=== PATIENT | male | born 1945 | race Caucasian/White ===

== ENCOUNTER 2019-09-24 16:58 | Outpatient (CLI) | payer MEDICARE, SELFPAY ==
--- NOTE | ~2019-09-24 | XR_ITS ---
XR lumbar spine 2-3V 09/24/2019 17:51 Indication: Low back pain after fall Procedure: 3 views lumbar spine Comparison: No prior studies for comparison. Findings: There is normal lumbar lordosis. There is disc narrowing at L2-3 through L5-S1. There is fa cet hypertrophy at L3-4, L4-5 and L5-S1. No acute fracture or traumatic malalignment. Pedicles intact . There is atherosclerosis of the aorta. Impression: 1: Moderate-severe lumbar spondylosis. Reviewed, dictated and finalized at location A. ND WATER TECHNICIAN Impression: 1: Moderate-severe lumbar spondylosis.
--- NOTE | ~2019-09-24 | XR_ITS ---
XR wrist LT min 3V, XR hand LT min 3V 09/24/2019 17:50 Indication: Left hand and wrist pain after fall Procedure: 4 views left wrist and 3 views left hand Comparison: No prior studies for comparison. Findings: There is an ossific density dorsal to the carpal bones on the lateral view, likely a trique tral fracture. Mild polyarticular osteoarthritis. No significant soft tissue abnormality. No radiopaq ue foreign bodies. Impression: 1: Probable triquetral fracture. Correlate for point tenderness. 2: Mild polyarticular osteoarthritis. Reviewed, dictated and finalized at location A. MATE HOOPS TRAINER Impression: 1: Probable triquetral fracture. Correlate for point tenderness. 2: Mild polyarticular osteoarthritis. Impression: 1: Probable triquetral fracture. Correlate for point tenderness. 2: Mild polyarticular osteoarthritis.
--- NOTE | ~2019-09-24 | XR_ITS ---
XR pelvis 1-2V 09/24/2019 17:50 Indication: Left pelvic pain after fall Procedure: AP pelvis Comparison: No prior studies for comparison. Findings: Pelvic rings are intact. Mild degenerative changes of the hips. No acute fracture or trauma tic malalignment. Sacral foramen are symmetric. There is mild osteitis pubis. Impression: 1: No acute bone or joint abnormality. Reviewed, dictated and finalized at location A. EL PHYSICAL THERAPIST Impression: 1: No acute bone or joint abnormality.
== END 2019-09-24 16:59 | disposition home or self-care (01) ==
LOC: CHSIMG 17:06
PROVIDERS: PCP Internal Medicine; Visit Provider Internal Medicine
DX: S39.92XA Unspecified injury of lower back, initial encounter (principal); S29.9XXA Unspecified injury of thorax, initial encounter; S69.92XA Unspecified injury of left wrist, hand and finger(s), initial encounter
CPT/HCPCS: 72100; 72170; 73110; 73130

== ENCOUNTER 2019-10-01 11:58 | Outpatient (CLI) | payer MEDICARE, SELFPAY ==
--- NOTE | ~2019-10-01 | XR_ITS ---
EXAMINATION: XR shoulder RT min 2V DATE: 10/01/2019 12:23 INDICATION: Chronic right shoulder pain. TECHNIQUE: 5 views of right shoulder were obtained. COMPARISON: None. FINDINGS: Bone alignment is normal. No fracture. There is mild osteoarthritis of glenohumeral joint a nd severe osteoarthritis of acromioclavicular joint. IMPRESSION: 1. Polyarticular osteoarthritis. Reviewed, dictated and finalized at location A. ICE OFFICER
[2019-10-01 12:14] LABS: Immature Reticulocyte Fraction 6.1 % (2.0-16.52); Reticulocyte Hemoglobin Conten 34.7 pg (28.0-35.0); Reticulocyte Percent 1.14 % (0.50-1.50); Reticulocytes Absolute 0.05 M/mm3 (0.02-0.1)
[2019-10-05 22:20] LABS: Albumin 4.2 g/dL (3.8-4.8); Alpha 1 Globulin 0.3 g/dL (0.2-0.3); Alpha 2 Globulin 0.7 g/dL (0.5-0.9); Beta 1 Globulin 0.5 g/dL (0.4-0.6); Protein, Total 6.9 g/dL (6.1-8.1)
== END 2019-10-01 11:59 | disposition home or self-care (01) ==
LOC: CHSLAB 12:00
PROVIDERS: PCP Internal Medicine; Visit Provider Internal Medicine
DX: M25.511 Pain in right shoulder (principal); N18.3 Chronic kidney disease, stage 3 (moderate); D64.9 Anemia, unspecified
CPT/HCPCS: 36415; 73030; 84155; 84165; 85046; 86334

== ENCOUNTER 2019-10-07 16:52 | Outpatient (CLI) | payer MEDICARE, SELFPAY ==
--- NOTE | ~2019-10-07 | MR_ITS ---
EXAMINATION: MR shoulder RT wo con DATE: 10/07/2019 18:17 INDICATION: Right shoulder pain and catching TECHNIQUE: Magnetic resonance imaging (MRI) of the right shoulder was performed without intravenous c ontrast. Sequences included axial PD-weighted FS FSE, coronal oblique PD-weighted FS FSE, coronal obl ique T2-weighted FS FSE, sagittal PD-weighted FS FSE, and sagittal T1-weighted SE. COMPARISON: None. FINDINGS: Coracoacromial arch: The acromion undersurface is curved in morphology (type II). Moderate-sized subacromial spur along wi th small heterotopic ossicle along the coracoacromial ligament which is thickened near its acromial i nsertion. Moderate acromioclavicular osteoarthritis with moderate-sized inferiorly directed osteophyt e which exerts mass effect upon the underlying myotendinous junction of the supraspinatus. There is a lso mild cystic change at the posterior margin of the head of the clavicle. Rotator cuff: Moderate to severe tendinopathy without discrete tear along the distal supraspinatus and infraspinatu s tendons. The teres minor tendon is normal. Mild supraspinatus tendinopathy. There is a small articu lar sided tear involving the superomedial aspect of the lesser tuberosity footplate measuring approxi mately 5 mm medial to caudal and extending approximately 2.5 cm lateral to medial. There is mild atro phy of the supraspinatus muscle belly with subtle concavity to the cephalad margin of the muscle at t he suprascapular fossa but without evident fatty infiltration. There is mild fatty atrophy of the inf raspinatus muscle belly. Biceps tendon, glenoid labrum and glenohumeral cartilage: Mild tendinopathy and longitudinal split tearing of the and biceps tendon centered at the junction of the intra and extra articular portions of the tendon. Irregular margins and mild amorphous increased signal at the posterior superior glenoid labrum consistent with likely degenerative tearing extendin g from the 12:30-10:00 position. There is a prominent marginal osteophyte which appears to extend les ng the peripheral rim of the 8:00-10:00 position of the posterior glenoid labrum. There is additional degenerative tearing along the 6:00-8:00 position of the posterior inferior glenoid labrum. Glenoid labrum is normal. Mild partial-thickness cartilage loss with smooth chondral surface along the infero medial and superolateral aspects of the humeral head. Moderate-sized flap marginal osteophytes along the anterior margin of the humeral head. These extend medially from the site of the subscapularis ten don tear and resultant narrowing of the subcoracoid space with the distance between the posterior mar gin of the coracoid process and the anterior margin of the osteophytes measuring 4 mm. Fluid: Physiologic amount of fluid in the glenohumeral joint space. No loose osteochondral bodies. Small mateo unt of heterogeneous near fluid signal along the long head biceps tendon sheath consistent with mild bicipital tenosynovitis. Small amount of fluid in the subacromial/subdeltoid bursa consistent with mi ld bursitis. There is also a small acromioclavicular joint effusion. Bones: Normal marrow signal with no fracture or pathologic marrow replacing process. Mild hypertrophic and c ystic changes at the superior and middle facets of the greater tuberosity likely related to chronic r otator cuff disease. IMPRESSION: 1. Moderate to severe supraspinatus and infraspinatus tendinopathy without discrete tear with moderat e sized subacromial spur and thickening and small heterotopic ossicle at the coracoacromial ligament. 2. Mild subscapularis tendinopathy with small partial-thickness articular sided tear at the superomed ial lesser tuberosity footplate which may relate to subcoracoid impingement with 4 mm separation betw een the coracoid process and moderate sized marginal osteophyte at the anterior humeral head. 3.
== END 2019-10-07 16:53 | disposition home or self-care (01) ==
LOC: CHSIMG 16:53
PROVIDERS: PCP Internal Medicine; Visit Provider Internal Medicine
DX: M25.511 Pain in right shoulder (principal)
CPT/HCPCS: 73221

== ENCOUNTER 2020-01-28 15:36 | Outpatient (CLI) | payer MEDICARE, SELFPAY ==
--- NOTE | ~2020-01-28 | US_ITS ---
EXAMINATION: US retroperitoneal comp DATE: 01/28/2020 16:09 INDICATION: Chronic kidney disease stage III TECHNIQUE: Multiple grayscale and Doppler ultrasound images of the kidneys were obtained. COMPARISON: None. FINDINGS: The right kidney measures 9.5 x 3.9 x 5.3 cm. The left kidney measures 10.1 x 5.1 x 4.7 cm. There is a 12 mm cyst of the left mid kidney.. The kidneys demonstrate normal parenchymal echogenici ty. There is no hydronephrosis. The bladder is normal. IMPRESSION: 1. Normal kidneys without hydronephrosis. Reviewed, dictated and finalized at location A.
== END 2020-01-28 15:37 | disposition home or self-care (01) ==
LOC: CHSIMG 15:38
PROVIDERS: PCP Internal Medicine; Visit Provider Internal Medicine
DX: N18.3 Chronic kidney disease, stage 3 (moderate) (principal)
CPT/HCPCS: 76770

== ENCOUNTER 2020-06-06 09:39 | Outpatient (CLI) | payer MEDICARE, SELFPAY ==
[2020-06-07 20:51] LABS: SARS-CoV-2 RNA PCR Negative
== END 2020-06-06 09:40 | disposition home or self-care (01) ==
LOC: CHSLAB 09:43
PROVIDERS: PCP Internal Medicine; Visit Provider Internal Medicine
DX: R05 Cough (principal); Z20.828 Contact with and (suspected) exposure to other viral communicable diseases
CPT/HCPCS: 87635; C9803; U0003

== ENCOUNTER 2020-08-12 13:57 | Outpatient (CLI) | payer MEDICARE, SELFPAY ==
--- NOTE | ~2020-08-12 | XR_ITS ---
XR chest 2V 08/12/2020 14:16 Indication: Left-sided chest pain and cough Procedure: 2 view chest Comparison: No prior studies for comparison. Findings: There is lingular consolidation. Right lung clear. No pleural effusion or pneumothorax. No acute osseous abnormality. Impression: 1: Lingular airspace consolidation which may represent atelectasis and/or pneumonia. Reviewed, dictated and finalized at location A. ITIONER TENDER Impression: 1: Lingular airspace consolidation which may represent atelectasis and/or pneum onia.
== END 2020-08-12 13:58 | disposition home or self-care (01) ==
LOC: CHSIMG 13:59
PROVIDERS: PCP Internal Medicine; Visit Provider Internal Medicine
DX: R07.9 Chest pain, unspecified (principal); R05 Cough
CPT/HCPCS: 71046

== ENCOUNTER 2020-08-25 14:40 | Outpatient (CLI) | payer MEDICARE, SELFPAY ==
--- NOTE | ~2020-08-25 | XR_ITS ---
EXAMINATION: XR chest 2V DATE: 08/25/2020 15:08 INDICATION: Left chest pain. Cough. TECHNIQUE: Frontal and lateral views of the chest were obtained. COMPARISON: Chest 2 views 08/12/2020 FINDINGS: There are mild airspace opacities in lingula. No pleural effusion or pneumothorax. The hear t size is normal. IMPRESSION: 1. Stable mild airspace opacities in lingula, consistent with atelectasis versus pneumonia. Reviewed, dictated and finalized at location B. RING MACHINE OPERATOR IMPRESSION: 1. Stable mild airspace opacities in lingula, consistent with atelectasis versu s pneumonia.
== END 2020-08-25 14:41 | disposition home or self-care (01) ==
LOC: CHSIMG 14:42
PROVIDERS: PCP Internal Medicine; Visit Provider Internal Medicine
DX: M35.3 Polymyalgia rheumatica (principal); J18.9 Pneumonia, unspecified organism
CPT/HCPCS: 71046

== ENCOUNTER 2020-12-12 09:49 | Outpatient (CLI) | payer MEDICARE, SELFPAY ==
[2020-12-12 12:04] LABS: SARS-CoV-2 RNA PCR Negative (Negative)
== END 2020-12-12 09:50 | disposition home or self-care (01) ==
LOC: CHSLAB 09:51
PROVIDERS: PCP Internal Medicine; Visit Provider Internal Medicine
DX: Z20.822 Contact with and (suspected) exposure to COVID-19 (principal)
CPT/HCPCS: C9803; U0003; U0005

== ENCOUNTER 2021-09-04 09:49 | Outpatient (CLI) | payer MEDICARE, SELFPAY ==
--- NOTE | ~2021-09-04 | CT_ITS ---
EXAMINATION: CT shoulder RT wo con DATE: 09/04/2021 10:13 INDICATION: Right shoulder pain TECHNIQUE: High resolution computed tomography (CT) of the right shoulder was performed without intra venous contrast. Additional sagittal and coronal reconstructions were performed. Automated exposure c ontrol and iterative reconstruction technique were employed. The dose-length product was 278.50 mGy-c m. COMPARISON: Right shoulder MRI dated 10/07/2019 and radiograph dated 10/01/2019 FINDINGS: Alignment is normal. No fracture. Mild right glenohumeral osteoarthritis with small marginal osteophy cortes along the rim of the glenoid. Moderate acromioclavicular osteoarthritis. Small anterior subacromi al spur and small heterotopic ossicle at the acromial side of the coracoacromial ligament. Subtle dys trophic calcification consistent with calcific tendinitis along the distal supraspinatus and anterior infraspinatus tendons. Mild degenerative cystic change along the middle facet of the greater tuberos ity likely related to chronic rotator cuff disease. Again seen is mild muscular atrophy of the supras pinatus with concavity to the posterior cephalad margin of the muscle belly. There is also mild fatty atrophy of the subscapularis muscle belly. No pathologically enlarged lymphadenopathy at the right a xilla, right hilum or visualized right neck or mediastinum. Dual-lead cardiac pacemaker with lead tip s projecting over the regions of the right atrial appendage and right pulmonary outflow tract on the car escort topograms. Visualized portions of the right lung are clear. IMPRESSION: 1. Mild right glenohumeral and moderate acromioclavicular osteoarthritis. 2. Supraspinatus and infraspinatus calcific tendinitis. Reviewed, dictated and finalized at location A. N BUFFER
== END 2021-09-04 09:50 | disposition home or self-care (01) ==
PROVIDERS: PCP Internal Medicine; Visit Provider Internal Medicine
DX: M25.511 Pain in right shoulder (principal)
CPT/HCPCS: 73200

== ENCOUNTER 2021-10-04 09:54 | Outpatient (CLI) | payer MEDICARE, SELFPAY ==
--- NOTE | ~2021-10-04 | CT_ITS ---
EXAMINATION: CT lumbar spine wo con DATE: 10/04/2021 10:31 INDICATION: Lumbar canal stenosis. TECHNIQUE: Computed tomography (CT) of the lumbar spine was performed without intravenous contrast. A utomated exposure control and iterative reconstruction technique were employed. The dose-length produ ct was 499.74 mGy-cm. COMPARISON: None FINDINGS: There is a 3.2 cm fusiform infrarenal aortic aneurysm. There is 3 mm retrolisthesis of L3 o n L4. Vertebral body heights are normal. There is mildly decreased disc height from L2-L3 through L4- L5. The following disc levels are specifically discussed: L1-L2: The disc does not extend beyond the endplate margin. There is mild bilateral facet joint osteo arthritis. There is no neural foraminal stenosis. There is no central canal stenosis. L2-L3: The disc is bulging. There is mild right and moderate left facet joint osteoarthritis. There i s mild right and moderate left neural foraminal stenosis. There is mild central canal stenosis. L3-L4: The disc is bulging. There is severe right and moderate left facet joint osteoarthritis. There is moderate bilateral neural foraminal stenosis. There is mild central canal stenosis. L4-L5: The disc is bulging. There is severe bilateral facet joint osteoarthritis. There is mild right and moderate left neural foraminal stenosis. There is mild central canal stenosis. L5-S1: The disc is bulging. There is severe bilateral facet joint osteoarthritis. There is mild bilat eral neural foraminal stenosis. There is mild central canal stenosis. IMPRESSION: 1. Moderate lumbar spondylosis. Reviewed, dictated and finalized at location A. ACE STOCK INSPECTOR
== END 2021-10-04 09:55 | disposition home or self-care (01) ==
LOC: CHSIMG 09:56
PROVIDERS: PCP Internal Medicine; Visit Provider Internal Medicine
DX: M48.061 Spinal stenosis, lumbar region without neurogenic claudication (principal); M48.062 Spinal stenosis, lumbar region with neurogenic claudication
CPT/HCPCS: 72131

== ENCOUNTER 2021-10-27 09:29 | Outpatient (CLI) | payer MEDICARE, SELFPAY ==
--- NOTE | ~2021-10-27 | US_ITS ---
EXAMINATION: US retroperitoneal comp EXAM DATE: 10/27/2021 09:49 INDICATION: Hematuria. TECHNIQUE: Multiple grayscale and Doppler images of the kidneys were obtained (by a technologist who performed the scan) and subsequently reviewed. Comparison is made to prior examination from 01/28/2020 . FINDINGS: Right kidney: There is normal contour and echogenicity. It measures 9.0 x 4.9 x 4.2 centimeters. Th ere are no focal renal lesions identified. There is no hydronephrosis. Left kidney: There is normal contour and echogenicity. It measures 9.4 x 4.7 x 4.9 centimeters. Ther e is an exophytic cyst measuring 1.3 cm. There is no hydronephrosis. Bladder unremarkable. Prostate measures about 5 cm in dimension, volume estimated at 61 mL. IMPRESSION: 1. Small left renal cyst. 2. Moderate prostatomegaly. Reviewed, dictated and finalized at location G.
== END 2021-10-27 09:30 | disposition home or self-care (01) ==
LOC: CHSIMG 09:30
PROVIDERS: PCP Internal Medicine; Visit Provider Internal Medicine
DX: R31.9 Hematuria, unspecified (principal)
CPT/HCPCS: 76770

== ENCOUNTER 2024-01-23 15:23 | Emergency (ER) | payer MEDICARE, SELFPAY ==
[2024-01-23] VITALS (10 sets, daily range): BP systolic 92–135; BP diastolic 53–74; PULSE 61–67; RESP 16–18; TEMP 36.4–36.6; O2SAT 95–98
--- NOTE | ~2024-01-23 | XR_ITS ---
EXAMINATION: XR chest 1V portable 01/23/2024 16:02 INDICATION: Syncope PROCEDURE: AP portable chest COMPARISON: Comparison to multiple prior studies sequentially, with oldest reviewed study dated 08/25. FINDINGS: The lungs are clear. The cardiomediastinal silhouette is within normal limits. There are no pleural effusions. There is no pneumothorax suspected. Pacemaker leads are in expected position. Heart size normal. IMPRESSION: 1: NO ACUTE CARDIOPULMONARY DISEASE. Reviewed, dictated and finalized at location B.
--- NOTE | ~2024-01-23 | CT_ITS ---
EXAMINATION: CT brain wo con DATE: 01/23/2024 15:54 INDICATION: Head injury. Syncopal episode. TECHNIQUE: Computed tomography (CT) of the head was performed without intravenous contrast. Sagittal and coronal reconstructions were performed. The mA was adjusted according to patient size. Iterative reconstruction technique was employed. The dose-length product was 605.33 mGy-cm. COMPARISON: None FINDINGS: No fracture. No acute intracranial hemorrhage, acute infarction or abnormal extra axial fluid collect ion. There is moderate scattered white matter hypoattenuation consistent with chronic small vessel is chemic disease. Symmetric prominence of the sulci consistent with mild age-appropriate diffuse cerebr al volume loss. Ventricles are normal and symmetric. No mass/mass effect. Changes of bilateral intra ocular lens replacement. The orbitsand paranasal sinuses are normal. Minimal left mastoid effusion. IMPRESSION: 1. No fracture or acute intracranial process. 2. Age-related changes including mild diffuse volume loss and moderate scattered white matter hypoatt enuation consistent with chronic small vessel ischemic disease. Reviewed, dictated and finalized at location A. IMPRESSION: 1. No fracture or acute intracranial process. 2. Age-related changes including mild diffuse volume loss and moderate scattere d white matter hypoattenuation consistent with chronic small vessel ischemic di sease.
--- NOTE | 2024-01-23 15:30 | ECG_ITS ---
Test Date: 2024-01-23 15:34:32 Measurements Intervals [place] Rate: 62 P: 106 MS: 196 QRS: 80 QRSD: 143 T: 81 QT: 416 QTc: 424 Interpretive Statements ELECTRONIC ATRIAL PACEMAKER ELECTRONIC VENTRICULAR PACEMAKER ATYPICAL ECG No previous ECG available for comparison Electronically Signed On 01-24-2024 11:02:33 CDT by Otto Krishnamurthy M.D.
[2024-01-23] MEDS: SODIUM CHLORIDE 0.9% IV 1,000 ML 999 ML IV CONT (16:05)
[2024-01-23 16:23] LABS: Appearance Urine Clear (Clear); Bilirubin Urine 1+ (Negative); Blood Urine Negative (Negative); Color Urine Dark Yellow (Yellow); Glucose Urine UA Negative (Negative); Ketones Urine 1+ (Negative); Leukocyte Esterase Ur Trace LEU/UL (Negative); Nitrate Urine Negative (Negative); Protein Urine 1+ (Negative); Specific Grav Ur 1.025 (1.010-1.020); pH Urine 6.5 (5.0-8.0)
[2024-01-23 16:24] LABS: Basophils Absolute Auto 0.05 K/mm3 (0.00-0.10); Basophils Percent Auto 0.6 % (0.0-1.0); Eosinophils Percent Auto 1.1 % (1.0-6.0); Hematocrit 36.9 % (37.0-46.0); Hemoglobin 12.5 g/dL (12.4-15.3); Immature Granulocyte Absolute 0.03 K/mm3 (0.00-0.00); Immature Granulocyte Percent A 0.3 % (0.0-0.0); Lymphocytes Percent Auto 19.1 % (18.0-42.0); Mean Corpuscular HGB Conc 33.9 g/dL (32-36); Mean Corpuscular Hemoglobin 30.8 pg (27.0-31.0); Mean Corpuscular Volume 90.9 fL (78.0-102.0); Mean Platelet Volume 9.2 fl (8.7-11.0); Monocytes Absolute Auto 0.43 K/mm3 (0.10-0.90); Monocytes Percent Auto 4.8 % (2.0-11.0); Neutrophils Absolute Auto 6.61 K/mm3 (1.70-7.20); Neutrophils Percent Auto 74.1 % (50.0-70.0); Platelet Count Result 240 K/mm3 (150-420); Red Blood Count 4.06 M/mm3 (4.70-6.10); Red Cell Distribution Width 13.4 % (11.6-14.4); White Blood Count 8.9 K/mm3 (4.8-10.8)
[2024-01-23 16:28] LABS: Add Urine Microscopic? YES; Bacteria Urine Trace /hpf; RBC Urine None seen /hpf (0-2); Squamous Epithelial Cell Urine Rare /hpf (Few); WBC Urine 0-3 /hpf (0-3)
[2024-01-23 16:29] LABS: Mucus Urine Moderate /lpf
[2024-01-23 16:34] LABS: Partial Thromboplastin Time 24.5 Sec (23.9-30.70); Prothrombin Time 11.1 Seconds (9.50-12.1)
[2024-01-23] MEDS: TETANUS,DIPHTHERIA,AC PERTUSSIS ADULT 0.5 ML (ADACEL) IM (16:36)
[2024-01-23 16:39] LABS: Alanine Aminotransferase 14 U/L (16-63); Albumin Level 3.4 g/dL (3.4-5.0); Alkaline Phosphatase 39 U/L (46-116); Anion Gap 5 mmol/L (4-12); Aspartate Amino Transferase 17 U/L (15-37); Bilirubin,Total 0.5 mg/dL (0.00-1.00); Blood Urea Nitrogen 23 mg/dL (7-18); Calcium 8.8 mg/dL (8.5-10.1); Carbon Dioxide 29 mmol/L (21-32); Chloride 104 mmol/L (98-108); Estimated CRCL calculation 33 ml/min; Estimated Glomerular Filt Rate 40; Glucose 101 mg/dL (70-99); Lactic Acid Reflex 1.1 mmol/L (0.4-2.0); Osmolality Calculated 289 mOsm/kg (285-295); Potassium 4.3 mmol/L (3.5-5.1); Sodium 138 mmol/L (136-145); Total Protein 6.6 g/dL (6.4-8.2)
[2024-01-23 16:44] LABS: CRP < 0.5 mg/dL (0.0-0.9)
[2024-01-23] MEDS: NEOMYCIN/POLYMYXIN/BACITRACIN OINTMENT PACKET 1 PACKET TOPICAL (16:50)
--- NOTE | 2024-01-23 16:59 | ED.SYNCOPE ---
HPI - Syncope General Chief Complaint: Syncope Stated Complaint: fainting Time Seen by Provider: 01/23/24 15:29 Source: patient and family Mode of arrival: ambulatory Limitations: no limitations History of Present Illness HPI narrative: this is an 78-year-old gentleman presents with his after he had a fainting spell/syncope with no prodrome no history of seizure activity patient has a history of Alzheimer's does have a skin tear to his right lower leg otherwise can move all extremities no pain elicited patient denies any pain no chest pain no shortness of breath. The patient neurologically is intact blood pressure stable at 1 70/61. Patient with a history of Alzheimer's and has a pacemaker in place. complaint: felt faint Onset (ago): minute(s) Duration of episode: 1 Prodromal symptoms: none Witnessed: Yes - by Bystander Context: at rest Related Data Allergies Allergy/AdvReac Type Severity Reaction Status Date / Time No Known Allergies Allergy Verified 01/23/24 15:30 Review of Systems Review of Systems: All systems reviewed & are unremarkable except as noted in HPI and below PMFSH Past Medical History Medical History Alzheimer's dementia Exam Const: General: healthy appearing and no acute distress Nutritional Appearance: well nourished Orientation/consciousness: patient oriented x3 Limitations: no limitations HENMT: Head: normal to inspection Eyes: Conjunctivae: conjunctivae normal Pupils: Equal, round and reactive pupils present Neck: Neck: normal visual inspection, no lymphadenopathy and no meningeal signs Chest: Chest palpation & inspection: normal inspection of the chest Resp: Effort & Inspection: normal respiratory effort Auscultation: clear to auscultation bilaterally Cardio: Rate: regular rate Rhythm: regular rhythm GI: GI Palp: Yes Soft to palpation Auscultation: normal bowel sounds Skin: General skin exam: normal color Wounds: wounds noted Neuro: General: moves all extremities, no meningeal signs and no focal motor deficits Cranial nerves: Yes Nystagmus not present Speech: normal speech Extrem: General: normal to inspection, no clubbing, cyanosis or edema and no pedal edema Course Course Emergency Course: patient initially blood pressure 92/53 received a L of normal saline current blood pressure 135/74, CT scan performed shows no acute intracranial process chest x-ray with no acute cardiopulmonary abnormalities. Labs reviewed patient has a chronic kidney failure. Vital Signs Vital signs: Vital Signs Temperature 36.4 C L 01/23/24 15:29 Pulse Rate 63 01/23/24 15:29 Respiratory Rate 18 01/23/24 15:29 Blood Pressure 92/53 L 01/23/24 15:29 Pulse Oximetry 97 01/23/24 15:29 Oxygen Delivery Room Air 01/23/24 15:29 Temperature 36.4 C 01/23/24 16:45 Pulse Rate 62 01/23/24 16:45 Respiratory Rate 16 01/23/24 16:45 Blood Pressure 117/61 01/23/24 16:45 Pulse Oximetry 98 01/23/24 16:45 Oxygen Delivery Room Air 01/23/24 16:45 MDM - Syncope Lab Data 01/23/24 16:17 01/23/24 16:17 Labs: Lab Results 01/23/24 Range/Units 16:17 WBC 8.9 (4.8-10.8) K/mm3 RBC 4.06 L (4.70-6.10) M/mm3 Hgb 12.5 (12.4-15.3) g/dL Hct 36.9 L (37.0-46.0) % MCV 90.9 (78.0-102.0) fL MCH 30.8 (27.0-31.0) pg MCHC 33.9 (32-36) g/dL RDW 13.4 (11.6-14.4) % Plt Count 240 (150-420) K/mm3 MPV 9.2 (8.7-11.0) fl Immature Gran % (Auto) 0.3 H (0.0-0.0) % Neut % (Auto) 74.1 H (50.0-70.0) % Lymph % (Auto) 19.1 (18.0-42.0) % [place] % (Auto) 4.8 (2.0-11.0) % Eos % (Auto) 1.1 (1.0-6.0) % Baso % (Auto) 0.6 (0.0-1.0) % Lymph # (Auto) 1.70 (1.10-4.50) K/mm3 [place] # (Auto) 0.43 (0.10-0.90) K/mm3 Eos # (Auto) 0.10 (0.02-0.50) K/mm3 Baso # (Auto) 0.05 (0.00-0.10) K/mm3 Abs Immat Gran (auto) 0.03 H (0.00-0.00) K/mm3 Absolute Neuts (a
--- NOTE | 2024-01-27 13:22 | PC.NURSE ---
PRELIMINARY BLOOD CULTURE RESULTS: ISOLATE 1: STAPHYLOCOCCUS HOMINIS NEGATIVE FOR INDUCIBLE CLINDAMYCIN RESISTANCE FROM AEROBIC BOTTLE ONLY.PER DR HANNAH TO NOTIFY PROVIDER. THIS RN SPOKE WITH FIORELLA AT DR. MASTERS'S OFFICE TO NOTIFY OF RESULT, SHE VOICES THEY WILL FOLLOW UP WITH PT.
--- NOTE | 2024-01-29 12:49 | PC.NURSE ---
BLOOD CULTURE , NO GROWTH NOTED
--- NOTE | 2024-01-31 12:29 | PC.NURSE ---
NOTED BLOOD CULTURE, CALL PLACED TO DR MASTERS OFFICE. DR MASTERS IS OUT ON VACATION, PT WAS SEEN BY JENNIFER CHILEL NP. AWARE OF CULTURE PER DR BRINK.
== END 2024-01-23 17:06 | disposition home or self-care (01) ==
PROVIDERS: Emergency Provider Emergency Medicine; PCP Internal Medicine
DX: R55 Syncope and collapse (principal); E86.0 Dehydration; S81.811A Laceration without foreign body, right lower leg, initial encounter; G30.9 Alzheimer's disease, unspecified; F02.80 Dementia in other diseases classified elsewhere, unspecified severity, without behavioral disturbance, psychotic disturbance, mood disturbance, and anxiety; Z23 Encounter for immunization; W19.XXXA Unspecified fall, initial encounter
CPT/HCPCS: 36415; 70450; 71045; 80053; 81001; 83605; 84484; 85025; 85610; 85730; 86140; 87040; 87147; 87181; 90471; 90715; 93005; 96360; 99284; J7030

== ENCOUNTER 2024-02-03 14:01 | Outpatient (CLI) | payer MEDICARE, SELFPAY ==
[2024-02-03 14:47] LABS: Alanine Aminotransferase 18 U/L (16-63); Albumin Level 3.4 g/dL (3.4-5.0); Alkaline Phosphatase 37 U/L (46-116); Anion Gap 6 mmol/L (4-12); Aspartate Amino Transferase 20 U/L (15-37); Bilirubin,Total 0.4 mg/dL (0.00-1.00); Blood Urea Nitrogen 18 mg/dL (7-18); Calcium 8.8 mg/dL (8.5-10.1); Carbon Dioxide 30 mmol/L (21-32); Chloride 103 mmol/L (98-108); Estimated Glomerular Filt Rate 49; Glucose 74 mg/dL (70-99); Osmolality Calculated 288 mOsm/kg (285-295); Potassium 4.3 mmol/L (3.5-5.1); Sodium 139 mmol/L (136-145); Total Protein 6.3 g/dL (6.4-8.2)
[2024-02-03 15:31] LABS: Hematocrit 36.8 % (37.0-46.0); Hemoglobin 12.2 g/dL (12.4-15.3); Mean Corpuscular HGB Conc 33.2 g/dL (32-36); Mean Corpuscular Hemoglobin 30.4 pg (27.0-31.0); Mean Corpuscular Volume 91.8 fL (78.0-102.0); Mean Platelet Volume 10.1 fl (8.7-11.0); Platelet Count Result 207 K/mm3 (150-420); Red Blood Count 4.01 M/mm3 (4.70-6.10); White Blood Count 7.1 K/mm3 (4.8-10.8)
== END 2024-02-03 14:02 | disposition home or self-care (01) ==
LOC: CHSLAB 14:04
PROVIDERS: PCP Internal Medicine; Visit Provider Nurse Practitioner Family
DX: R78.81 Bacteremia (principal)
CPT/HCPCS: 36415; 80053; 85027

== ENCOUNTER 2024-12-25 08:21 | Outpatient (CLI) | payer MEDICARE, SELFPAY ==
--- NOTE | ~2024-12-25 | CT_ITS ---
EXAMINATION: CTA abdomen DATE: 12/25/2024 09:25 INDICATION: Abdominal aortic aneurysm TECHNIQUE: Computed tomographic angiography (CTA) of the abdomen was performed 100 mL Omnipaque-350 i ntravenous contrast. Volume-rendered 3D-reconstructions of the aorta and large arteries were construc rachel by the technologist on a separate workstation. Automated exposure control and iterative reconstru ction technique were employed. The dose-length product was 373.35 mGy-cm. COMPARISON: None FINDINGS: Mild emphysema and mild basilar atelectasis at the visualized lower lungs. Heart size is normal. No p ericardial effusion. 3-lead cardiac pacemaker with lead tips at the right atrial appendage and near t he apex of the right ventricle and in a coronary vein overlying the lateral wall the left ventricle h aving traversed the coronary sinus. No pericardial or pleural effusion. Liver, gallbladder, spleen, pancreas and bilateral adrenal glands are normal. Likely age-related diff use mild bilateral renal cortical scarring. 1.3 cm exophytic left renal cyst. Multiple diverticula sc attered along the visualized portion of the colon without adjacent inflammatory stranding to suggest diverticulitis. Small bowel and appendix are normal. No pathologically enlarged abdominal or upper pe lvic lymphadenopathy. Ectatic infrarenal abdominal aorta measuring up to 3.4 x 3.3 cm in maximal diam eter. Moderate lumbar and lower thoracic spondylosis. There is extensive scattered calcified atherosc lerosis of the aorta and many of the other arteries without evident hemodynamically significant steno sis.. IMPRESSION: 1. Ectatic infrarenal abdominal aorta measuring up to 3.4 x 3.3 cm. Reviewed, dictated and finalized at location A.
--- OUTSIDE RECORDS SUMMARY | 2024-12-25 08:25 | XMS_ITS | Clinical Summary ---
Author Organization [facility] Address [address] [place] [id number] Care Team Providers Care Grain Sacker Name Role Phone Lupe Lynne MD Primary Care Provider + [phone] Allergies No known active allergies Medications sertraline (ZOLOFT) 25 mg tablet Take 25 mg by mouth daily. 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 Surgical History Surgery Date Site/Laterality Comments FOOT SURGERY Foot Surgery - (Added by TW Conv) Medical History Medical History Date Comments Personal history of other en docrine, nutritional and metabolic disease History of hyperchol esterolemia - (Added by TW Conv) Social History Tobacco Use Types Packs/Day Years Used Date Smoking Tobacco: Former Smokeless Tobacco: Never Sex and Gender Information Value Date Recorded Sex Assigned at Not on file Legal Sex 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:32 AM LANGUAGE TUTOR Gender Identity Not on file Sexual Orientation Not on file Obstetrics History Last Filed Vital Signs Vital Sign Reading Time Taken Comments Blood Pressure 116/75 12/11/2022 11:17 AM CDT Pulse 75 12/11/2022 11:17 AM CDT Temperature 36.6 C (97.9 F) 12/11/2022 11:17 AM CDT Respiratory Rate - - Oxygen Saturation 96% 06/30/2013 1:09 PM LANGUAGE TUTOR Inhaled Oxygen Concentration - - Weight 74.8 kg (165 lb) 12/11/2022 11:17 AM CDT Height 177.8 cm (5' 10 ) 12/11/2022 11:17 AM CDT Body Mass Index 23.68 12/11/2022 11:17 AM CDT Plan of Treatment Health Maintenance Due Date Last Done Comments Depression Screening 1943 Fall Risk Assessment 1943 Hepatitis B Screening 1961 Abdominal Aortic Aneurysm (A AA) Screen 2008 Well Visit 65+ 2008 Pneumococcal vaccine 65+ (2 of 2 - PCV) 03/09/2022 03/09/2021 Covid-19 Vaccine ( season) 2024 07/05/2021, 11/11/2020, 10/12/2020 Influenza Vaccine (Season Ended) 2025 DTaP/Tdap/Td Vaccine (2 - Td or Tdap) 04/10/202701/2017 Zoster Vaccine Completed 04/07/2021, 12/06/2020 Insurance MEDICARE [employer] CHOICE MEDICARE PPO [employer] MEDICARE HMO MEDICARE Care Teams Grain Sacker Relationship Specialty Start Date End Date Lupe Lynne MD [address] [place] [address] PCP - General Internal Medicine 11/13/22
--- OUTSIDE RECORDS SUMMARY | 2024-12-25 08:25 | XMS_ITS | Referral Summary ---
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 Social History Tobacco Use Types Packs/Day Years Used Date Smoking Tobacco: Former Smokeless Tobacco: Never Sex and Gender Information Value Date Recorded Sex Assigned at Not on file Legal Sex Male 9:32 AM OBGYN NURSE Gender Identity Not on file Sexual Orientation Not on file Last Filed Vital Signs Vital Sign Reading Time Taken Comments Blood Pressure 116/75 12/11/2022 11:17 AM CDT Pulse 75 12/11/2022 11:17 AM CDT Temperature 36.6 C (97.9 F) 12/11/2022 11:17 AM CDT Respiratory Rate - - Oxygen Saturation 96% 06/30/2013 1:09 PM OBGYN NURSE Inhaled Oxygen Concentration - - Weight 74.8 kg (165 lb) 12/11/2022 11:17 AM CDT Height 177.8 cm (5' 10 ) 12/11/2022 11:17 AM CDT Body Mass Index 23.68 12/11/2022 11:17 AM CDT Plan of Treatment Not on file Insurance MEDICARE [facility] MEDICARE [employer] MEDICARE HMO MEDICARE Care Teams Fire Prevention Chief Relationship Specialty Start Date End Date Lupe Lynne MD [address] [place], [place] [id number] PCP - General Internal Medicine 11/13/22
--- OUTSIDE RECORDS SUMMARY | 2024-12-25 08:25 | XMS_ITS ---
Author Organization Unknown Address [address] [place], [place] [phone] Phone Care Team Providers Care Medical Legal Investigator Name Role Phone RANJANA JENNIFER Attending Unavailable SONMA WALDRON Primary Unavailable Immunization Immunization Date Status Additional Notes Code Code System pneumococcal polysaccharide PPV23 03/09/2021 Completed 33 CVX Tdap 04/10/2017 Completed 115 CVX Tdap 01/23/2024 Completed 115 CVX zoster recombinant 12/06/2020 Completed 187 CVX zoster recombinant 04/07/2021 Completed 187 CVX COVID-19, mRNA, LNP-S, PF, 1 00 mcg/0.5mL dose or 50 mcg/0.25mL dose 10/12/2020 Completed 207 CVX COVID-19, mRNA, LNP-S, PF, 1 00 mcg/0.5mL dose or 50 mcg/0.25mL dose 11/11/2020 Completed 207 CVX COVID-19, mRNA, LNP-S, PF, 1 00 mcg/0.5mL dose or 50 mcg/0.25mL dose 07/05/2021 Completed 207 CVX Pneumococcal conjugate PCV20 , polysaccharide [id number] conjugate, adjuvant, PF 07/18/2023 Completed 216 CVX Results US ECHO W/ COLOR - Completed : 02/19/2024 15:11 LOINC: See Scanned Image Attachment for Report Dictated By: Trans Initials: BG Trans Date: 02/21/24 09:50 <<REPDIST>> Social History Type Status Start Date End Date Code Code Syst em Smoking History Current every day smoker 161250191 SNOMED CT Smoking History Unknown if ever smoked [id number] Sex Male Hospital Discharge Instructions Should you have any questions prior to discharge, please contact a member of your healthcare team. If you have left the hospital and have any questions, please contact your primary care physician. Reason For Referral No Data Found Implants Implanted TONY Status Assigning Authority Procedure Date Lot Number Serial Number Manufacturing Date Expiration Date Distinct ID Code Brand Name Model Number ACRYSOF IQ IOL UV WITH BLUE LIGHT FILTER- RIGHT Active XCAPSL CTRC RMVL INSJ IO LENS PROSTH W/O ECP 04/19 [id number] 05/23/2025 ACRYSO F IQ IOL SN60WF POWER: +23.5D Allergies and Adverse Reactions Allergy Substance Reaction Severity Start Date Concern Status Co de Code System No Known Drug Allergies Active 052738035 SNOMED-CT Plan of Treatment CTA Angio Abdomen WWO Contrast (87000) 11/27/2022 US Echo With Color (50991) 02/19/2024 Encounters Encounter Diagnosis Start Date Code Code Sys tem Bacteremia 02/19/2024 8106377 SNOMED-CT Personal Care Team Section Performer Name Performer Role Active Date Inactive CHIVO Alonso PCP - Primary care physician 2021-03-04 Imaging Narrative Notes [facility] 02/21/2024 09:50 [place] [address] RADIOLOGY REPORT Patient Number: [id number] Patient Name: TIGIST CLARK Type: O/P MR Number: [id number] : 1945 Age: 78 Sex: M Room #: Admit Date: 02/19/24 Discharge Date 02/19/24 Ordering Physician: RANJANA RODRIGUEZ Family Physician: SONAM WANG Second Physician: X-Ray Number : [id number] US ECHO W/ COLOR 73494 COMPLETE:02/19/24 15:11 TLS [id number] (REASON-ECHO COMPLTE: SYNCOPE AND COLLAPSE See Scanned Image Attachment for Report Dictated By: Trans Initials: BG Trans Date: 02/21/24 09:50 <<REPDIST>>
--- OUTSIDE RECORDS SUMMARY | 2024-12-25 08:25 | XMS_ITS ---
Author Organization Unknown Address [address] [place], [place] [phone] Phone Care Team Providers Care Aircraft Maintenance Instructor Name Role Phone SONAM WALDRON Attending Unavailable Immunization Immunization Date Status Additional Notes [...] 207 CVX Pneumococcal conjugate PCV20 , polysaccharide [id number] conjugate, adjuvant, PF 07/18/2023 Completed 216 CVX Results COMPREHENSIVE METABOLIC PANE L - Collect Date/Time: 07/12/2023 12:20 [facility] ID: [id number] [address] [place], [place], [phone] LOINC: 43339-8 Test Value Unit Reference Range Code Code System Flag FASTING UNK BUN 23 mg/dL L=7 H=20 3094-0 LOINC H CREATININE 1.70 mg/dL L=0.66 H=1.25 2160-0 LOINC H GLUCOSE 114 mg/dL L=74 H=106 2345-7 LOINC H SODIUM 143 mmol/L L=132 H=144 2951-2 LOINC POTASSIUM 4.3 mmol/L L=3.5 H=5.1 2823-3 LOINC CHLORIDE 104 mmol/L L=98 H=107 2075-0 LOINC CO2 29.0 mmol/L L=22.0 H=30.0 2028-9 LOINC ANION GAP 14 L=10 H=20 61977-1 LOINC OSMOLALITY 301 mOs/kG L=280 H=296 31724-3 LOINC H BUN/CREAT 13.5 3097-3 LOINC CALCIUM 9.9 mg/dL L=8.3 H=10.5 67996-5 LOINC AST 29 U/L L=15 H=46 1920-8 LOINC ALT 19 U/L L=9 H=72 1742-6 LOINC ALKALINE PHOS 45 U/L L=38 H=126 6768-6 LOINC TOTAL BILI 0.7 mg/dL L=0.2 H=1.3 1975-2 LOINC ALBUMIN 4.6 G/dL L=3.5 H=5.0 1751-7 LOINC TOTAL PROTEIN 7.9 g/L L=6.3 H=8.2 2885-2 LOINC A/G RATIO 1.4 18404-2 LOINC AGE 78 26883-8 LOINC eGFR NON-AFR 41 ml/min eGFR AFR AMER 50 ml/min CBC W/O DIFF - Collect Date/ Time: 07/12/2023 12:20 [facility] ID: [id number] [address] [place], [place], [phone] LOINC: 37984-5 Test Value Unit Reference Range Code Code System Flag WBC 9.4 10^3uL L=4.8 H=10.8 RBC 4.52 10^6uL L=4.60 H=6.20 L HEMOGLOBIN 13.6 g/dL L=14.0 H=18.0 718-7 LOINC L HEMATOCRIT 41.6 VOL% L=42.0 H=52.0 4544-3 LOINC L MCV 92.0 fL L=80.0 H=94.0 MCH 30.1 pg L=27.0 H=32.0 MCHC 32.7 g/dL L=32.0 H=36.0 PLATELETS 205 10^3uL L=100 H=400 12012-0 LOINC RDW 13.8 % L=11.7 H=15.5 PRO BNP - Collect Date/Time: 07/12/2023 12:20 [facility] ID: [id number] [address] [place], [place], [address] LOINC: 72491-1 Test Value Unit Reference Range Code Code System Flag Pro BNP2 319 pg/mL L=0 K=1710 48189-3 LOINC CHEST 2V - Completed: 2022 12:35 LOINC: EXAM DESCRIPTION: CHEST 2V REASON FOR STUDY: smoker wheezing, cough and sob checking fluid around heart hx of asthma Duration: 1 week TECHNIQUE: 2 radiographic view(s) of the chest. COMPARISON: None available FINDINGS: LUNGS: No focal opacity, pleural effusion, or pneumothorax. HEART/MEDIASTINUM: Cardiac silhouette normal in size. Mediastinal and hilar contours appear normal. LINES/TUBES: None. BONES: No acute osseous abnormality. Chest wall cardiac device with leads projected over the right atrium and right ventricle. IMPRESSION: ? ? No acute cardiopulmonary abnormality. THIS IS AN ELECTRONICALLY VERIFIED FINAL REPORT 07/12/2023 12:42 PM - Electronically signed by Eduard Welsh M.D. AG: CHRISTOPHER Report ID: [id number] Reading Location: [place] [address] Social History Type Status Start Date End Date Code Code Syst em Smoking History Current every day smoker 321881191 SNOMED CT Smoking History Unknown if ever smoked [address] Sex Male Hospital Discharge Instructions [...] INSJ IO LENS PROSTH W/O ECP 04/19 2597055 83 055 05/23/2025 ACRYSO F IQ IOL SN60WF POWER: +23.5D Allergies and Adverse Reactions Allergy Substance Reaction Severity Start Date Concern Status Co de Code System No Known Drug Allergies Active 429159835 SNOMED-CT Plan of Treatment CTA Angio Abdomen WWO Contrast (86305) 11/27/2022 US Echo With Color (40052) 02/19/2024 Encounters Encounter Diagnosis Start Date Code Code Sys tem Cough 07/12/2023 05531787 SNOMED-CT Personal Care Team Section Performer Name Performer Role Active Date Inactive CHIVO Alonso PCP - Primary care physician 2021-03-04 Imaging Narrative Notes
[2024-12-25 08:52] LABS: Estimated Glomerular Filt Rate 38
== END 2024-12-25 08:22 | disposition home or self-care (01) ==
LOC: CHSIMG 08:23
PROVIDERS: PCP Internal Medicine; Visit Provider Internal Medicine
DX: I71.40 Abdominal aortic aneurysm, without rupture, unspecified (principal)
CPT/HCPCS: 74175; Q9967